=== PATIENT | female | born 1935 | race Caucasian/White ===

== ENCOUNTER 2021-01-10 11:20 | Inpatient (IN) ==
[2021-01-10] MEDS ORDERED: Nitroglycerin 0.4 MG TAB.SUBL SL PRN (16:20)
[2021-01-10] MEDS: *HR* Rivaroxaban 10 MG TABLET PO SCH (18:36)
[2021-01-11 08:01] LABS: Basophils # 0.1 K/mcL (0.0-0.2); Basophils % 0.7 %; Eosinophils # 0.2 K/mcL (0.0-0.6); Eosinophils % 3.2 %; Hematocrit 34.9 % (35.3-44.9); Hemoglobin 11.2 g/dL (11.5-15.4); Immature Granulocytes % 0.4 % (0-4); Lymphocytes # 1.1 K/mcL (0.6-4.6); Lymphocytes % 15.4 %; Mean Corpuscular HGB Conc 32.1 g/dL (31.6-35.5); Mean Corpuscular Hemoglobin 29.6 pg (28.0-33.3); Mean Corpuscular Volume 92.3 fL (83.0-100.0); Mean Platelet Volume 11.5 fL (9.4-12.4); Monocytes # 0.7 K/mcL (0.0-1.3); Monocytes % 9.8 %; Neutrophils # 5.1 K/mcL (1.6-8.9); Platelet Count 232 K/mcL (140-400); Red Blood Count 3.78 M/mcL (3.82-4.97); Red Cell Distribution Width 13.4 % (11.5-14.5); Segmented Neutrophils % 70.5 %; White Blood Count 7.3 K/mcL (4.3-11.1)
[2021-01-11 08:27] LABS: BUN/Creatinine Ratio 27 (6-26); Blood Urea Nitrogen 24 mg/dL (8-23); Calcium 8.3 mg/dL (8.6-10.3); Carbon Dioxide 28 mEq/L (23-29); Chloride 104 mEq/L (98-107); Glucose 96 mg/dL (70-105); Osmolality,Calculated 290 (280-300); Potassium 4.3 mEq/L (3.5-5.1); Sodium 138 mEq/L (136-145); eGFR For African Americans > 60 (> 60); eGFR For Non-African Americans 60 (> 60)
[2021-01-11] MEDS: Cholecalciferol (D-3) 1,000 UNIT (25MCG) TABLET PO SCH (10:03)
[2021-01-11] MEDS: *HR* Amiodarone 200 MG TABLET PO SCH (10:03)
[2021-01-11] MEDS: NIFEdipine XL (24 HR) 30 MG TAB.ER.24 PO SCH (10:03)
[2021-01-11] MEDS: Zinc Sulfate 220 MG CAPSULE PO SCH (10:03)
[2021-01-11] MEDS: Ascorbic Acid 500 MG TABLET PO SCH (10:04)
[2021-01-11] MEDS: Metoprolol XL (24 HR) Succ 25 MG TAB.ER.24H PO SCH (10:04)
[2021-01-11] MEDS: lisinopriL 20 MG TABLET PO SCH (10:04)
[2021-01-11] MEDS: Ondansetron ODT 4 MG TAB.RAPDIS SL PRN (10:45)
[2021-01-11] MEDS: polyethylene glycoL 3350 17 GM POWD.PACK PO SCH (14:16)
[2021-01-11] MEDS: *HR* Rivaroxaban 10 MG TABLET PO SCH (18:28)
[2021-01-12] MEDS: *HR* HYDROcodone/Acet 5/325 mg TABLET PO PRN (01:04)
[2021-01-12] MEDS: Metoprolol XL (24 HR) Succ 25 MG TAB.ER.24H PO SCH (09:03)
[2021-01-12] MEDS: Cholecalciferol (D-3) 1,000 UNIT (25MCG) TABLET PO SCH (09:03)
[2021-01-12] MEDS: lisinopriL 20 MG TABLET PO SCH (09:04)
[2021-01-12] MEDS: polyethylene glycoL 3350 17 GM POWD.PACK PO SCH (09:04)
[2021-01-12] MEDS: NIFEdipine XL (24 HR) 30 MG TAB.ER.24 PO SCH (09:04)
[2021-01-12] MEDS: *HR* Amiodarone 200 MG TABLET PO SCH (09:04)
[2021-01-12] MEDS: Ascorbic Acid 500 MG TABLET PO SCH (09:04)
[2021-01-12] MEDS: Zinc Sulfate 220 MG CAPSULE PO SCH (09:04)
[2021-01-12] MEDS: hydroCHLOROthiazide 25 MG TABLET PO SCH (09:04)
[2021-01-12] MEDS: Ondansetron ODT 4 MG TAB.RAPDIS SL PRN (10:10)
[2021-01-12 17:40] LABS: Estimated Average Glucose 117 mg/dl; Hemoglobin A1C 5.7 %
[2021-01-12] MEDS: *HR* Rivaroxaban 10 MG TABLET PO SCH (17:40)
[2021-01-13] MEDS: *HR* HYDROcodone/Acet 5/325 mg TABLET PO PRN (02:36)
[2021-01-13] MEDS: NIFEdipine XL (24 HR) 30 MG TAB.ER.24 PO SCH (08:53)
[2021-01-13] MEDS: polyethylene glycoL 3350 17 GM POWD.PACK PO SCH (08:53)
[2021-01-13] MEDS: lisinopriL 20 MG TABLET PO SCH (08:53)
[2021-01-13] MEDS: *HR* Amiodarone 200 MG TABLET PO SCH (08:54)
[2021-01-13] MEDS: Ascorbic Acid 500 MG TABLET PO SCH (08:54)
[2021-01-13] MEDS: Cholecalciferol (D-3) 1,000 UNIT (25MCG) TABLET PO SCH (08:54)
[2021-01-13] MEDS: Zinc Sulfate 220 MG CAPSULE PO SCH (08:54)
[2021-01-13] MEDS: hydroCHLOROthiazide 25 MG TABLET PO SCH (08:54)
[2021-01-13] MEDS ORDERED: Glycerin RECTAL Suppository RC ONE (10:49)
[2021-01-13] MEDS: *HR* Rivaroxaban 10 MG TABLET PO SCH (18:18)
[2021-01-14] MEDS: Sennosides 8.6 MG TABLET PO PRN (06:02)
[2021-01-14] MEDS: lisinopriL 20 MG TABLET PO SCH (09:19)
[2021-01-14] MEDS: hydroCHLOROthiazide 25 MG TABLET PO SCH (09:19)
[2021-01-14] MEDS: NIFEdipine XL (24 HR) 30 MG TAB.ER.24 PO SCH (09:19)
[2021-01-14] MEDS: polyethylene glycoL 3350 17 GM POWD.PACK PO SCH (09:20)
[2021-01-14] MEDS: Metoprolol XL (24 HR) Succ 25 MG TAB.ER.24H PO SCH (09:20)
[2021-01-14] MEDS: *HR* Amiodarone 200 MG TABLET PO SCH (09:20)
[2021-01-14] MEDS: Zinc Sulfate 220 MG CAPSULE PO SCH (09:20)
[2021-01-14] MEDS: Cholecalciferol (D-3) 1,000 UNIT (25MCG) TABLET PO SCH (09:20)
[2021-01-14] MEDS: Ascorbic Acid 500 MG TABLET PO SCH (09:20)
[2021-01-14] MEDS: Ondansetron ODT 4 MG TAB.RAPDIS SL PRN (11:51)
[2021-01-14] MEDS: *HR* Rivaroxaban 10 MG TABLET PO SCH (18:46)
[2021-01-15] MEDS: *HR* HYDROcodone/Acet 5/325 mg TABLET PO PRN (04:19)
[2021-01-15 07:16] LABS: Basophils % 0.5 %; Eosinophils # 0.2 K/mcL (0.0-0.6); Eosinophils % 2.6 %; Hematocrit 36.6 % (35.3-44.9); Hemoglobin 11.8 g/dL (11.5-15.4); Immature Granulocytes % 0.4 % (0-4); Lymphocytes # 1.5 K/mcL (0.6-4.6); Lymphocytes % 19.8 %; Mean Corpuscular HGB Conc 32.2 g/dL (31.6-35.5); Mean Corpuscular Hemoglobin 29.6 pg (28.0-33.3); Mean Corpuscular Volume 91.7 fL (83.0-100.0); Mean Platelet Volume 11.1 fL (9.4-12.4); Monocytes # 0.8 K/mcL (0.0-1.3); Monocytes % 10.2 %; Neutrophils # 4.9 K/mcL (1.6-8.9); Platelet Count 279 K/mcL (140-400); Red Blood Count 3.99 M/mcL (3.82-4.97); Red Cell Distribution Width 13.4 % (11.5-14.5); Segmented Neutrophils % 66.5 %; White Blood Count 7.4 K/mcL (4.3-11.1)
[2021-01-15 07:59] LABS: BUN/Creatinine Ratio 29 (6-26); Blood Urea Nitrogen 31 mg/dL (8-23); Calcium 8.5 mg/dL (8.6-10.3); Carbon Dioxide 30 mEq/L (23-29); Chloride 101 mEq/L (98-107); Glucose 90 mg/dL (70-105); Osmolality,Calculated 288 (280-300); Potassium 4.2 mEq/L (3.5-5.1); Sodium 136 mEq/L (136-145); eGFR For African Americans > 60 (> 60); eGFR For Non-African Americans 50 (> 60)
[2021-01-15] MEDS: Metoprolol XL (24 HR) Succ 25 MG TAB.ER.24H PO SCH (08:03)
[2021-01-15] MEDS: polyethylene glycoL 3350 17 GM POWD.PACK PO SCH (08:03)
[2021-01-15] MEDS: Zinc Sulfate 220 MG CAPSULE PO SCH (08:04)
[2021-01-15] MEDS: lisinopriL 20 MG TABLET PO SCH (08:04)
[2021-01-15] MEDS: NIFEdipine XL (24 HR) 30 MG TAB.ER.24 PO SCH (08:04)
[2021-01-15] MEDS: *HR* Amiodarone 200 MG TABLET PO SCH (08:04)
[2021-01-15] MEDS: Ascorbic Acid 500 MG TABLET PO SCH (08:05)
[2021-01-15] MEDS: Cholecalciferol (D-3) 1,000 UNIT (25MCG) TABLET PO SCH (08:05)
[2021-01-15] MEDS: Sennosides 8.6 MG TABLET PO PRN (08:05)
[2021-01-15] MEDS: hydroCHLOROthiazide 25 MG TABLET PO SCH (08:05)
[2021-01-15] MEDS: Fluticasone Propionate Nasal 50 MCG/SPRAY BOTTLE NS SCH (08:14)
[2021-01-15] MEDS: *HR* Rivaroxaban 10 MG TABLET PO SCH (18:28)
[2021-01-16] MEDS: lisinopriL 20 MG TABLET PO SCH (09:20)
[2021-01-16] MEDS: polyethylene glycoL 3350 17 GM POWD.PACK PO SCH (09:20)
[2021-01-16] MEDS: hydroCHLOROthiazide 25 MG TABLET PO SCH (09:21)
[2021-01-16] MEDS: *HR* HYDROcodone/Acet 5/325 mg TABLET PO PRN (09:21)
[2021-01-16] MEDS: Zinc Sulfate 220 MG CAPSULE PO SCH (09:23)
[2021-01-16] MEDS: *HR* Amiodarone 200 MG TABLET PO SCH (09:23)
[2021-01-16] MEDS: Cholecalciferol (D-3) 1,000 UNIT (25MCG) TABLET PO SCH (09:23)
[2021-01-16] MEDS: Metoprolol XL (24 HR) Succ 25 MG TAB.ER.24H PO SCH (09:24)
[2021-01-16] MEDS: NIFEdipine XL (24 HR) 30 MG TAB.ER.24 PO SCH (09:24)
[2021-01-16] MEDS: Ascorbic Acid 500 MG TABLET PO SCH (09:24)
[2021-01-16] MEDS: Fluticasone Propionate Nasal 50 MCG/SPRAY BOTTLE NS SCH (09:25)
[2021-01-16] MEDS: *HR* Rivaroxaban 10 MG TABLET PO SCH (18:09)
[2021-01-16] MEDS: Acetaminophen 325 MG TABLET PO PRN (18:09)
[2021-01-16] MEDS: methocarbamoL 500 MG TABLET PO PRN (20:36)
[2021-01-17] MEDS: Fluticasone Propionate Nasal 50 MCG/SPRAY BOTTLE NS SCH (08:15)
[2021-01-17] MEDS: polyethylene glycoL 3350 17 GM POWD.PACK PO SCH (08:16)
[2021-01-17] MEDS: *HR* Amiodarone 200 MG TABLET PO SCH (08:16)
[2021-01-17] MEDS: Zinc Sulfate 220 MG CAPSULE PO SCH (08:16)
[2021-01-17] MEDS: Metoprolol XL (24 HR) Succ 25 MG TAB.ER.24H PO SCH (08:16)
[2021-01-17] MEDS: lisinopriL 20 MG TABLET PO SCH (08:16)
[2021-01-17] MEDS: NIFEdipine XL (24 HR) 30 MG TAB.ER.24 PO SCH (08:16)
[2021-01-17] MEDS: Cholecalciferol (D-3) 1,000 UNIT (25MCG) TABLET PO SCH (08:17)
[2021-01-17] MEDS: hydroCHLOROthiazide 25 MG TABLET PO SCH (08:17)
[2021-01-17] MEDS: Ascorbic Acid 500 MG TABLET PO SCH (08:17)
[2021-01-17] MEDS: Ondansetron ODT 4 MG TAB.RAPDIS SL PRN (08:55)
[2021-01-17] MEDS: *HR* HYDROcodone/Acet 5/325 mg TABLET PO PRN (11:49)
[2021-01-17] MEDS ORDERED: Sennosides/Docusate Sodium TABLET PO SCH (21:00)
[2021-01-17] MEDS: Melatonin 3 MG TABLET PO PRN (21:50)
[2021-01-17] MEDS: *HR* Rivaroxaban 10 MG TABLET PO SCH (21:50)
[2021-01-17] MEDS: Sennosides/Docusate Sodium TABLET PO SCH (22:32)
[2021-01-18] MEDS: methocarbamoL 500 MG TABLET PO PRN ×2 (00:21→21:38)
[2021-01-18] MEDS: Acetaminophen 325 MG TABLET PO PRN (01:22)
[2021-01-18] MEDS: lisinopriL 20 MG TABLET PO SCH (11:14)
[2021-01-18] MEDS: NIFEdipine XL (24 HR) 30 MG TAB.ER.24 PO SCH (11:14)
[2021-01-18] MEDS: hydroCHLOROthiazide 25 MG TABLET PO SCH (11:14)
[2021-01-18] MEDS: Metoprolol XL (24 HR) Succ 25 MG TAB.ER.24H PO SCH (11:15)
[2021-01-18] MEDS: Zinc Sulfate 220 MG CAPSULE PO SCH (11:15)
[2021-01-18] MEDS: Ascorbic Acid 500 MG TABLET PO SCH (11:15)
[2021-01-18] MEDS: *HR* Amiodarone 200 MG TABLET PO SCH (11:16)
[2021-01-18] MEDS: Cholecalciferol (D-3) 1,000 UNIT (25MCG) TABLET PO SCH (11:16)
[2021-01-18] MEDS: Sennosides/Docusate Sodium TABLET PO SCH (11:19)
[2021-01-18] MEDS: Fluticasone Propionate Nasal 50 MCG/SPRAY BOTTLE NS SCH (11:19)
[2021-01-18] MEDS ORDERED: polyethylene glycoL 3350 17 GM POWD.PACK PO SCH (12:00)
[2021-01-18] MEDS: *HR* Rivaroxaban 10 MG TABLET PO SCH (18:35)
[2021-01-18] MEDS: *HR* HYDROcodone/Acet 5/325 mg TABLET PO PRN (21:38)
[2021-01-19] MEDS: Sennosides/Docusate Sodium TABLET PO SCH ×3 (03:55→20:21)
[2021-01-19] MEDS: Fluticasone Propionate Nasal 50 MCG/SPRAY BOTTLE NS SCH (08:10)
[2021-01-19] MEDS: lisinopriL 20 MG TABLET PO SCH (11:20)
[2021-01-19] MEDS: Ascorbic Acid 500 MG TABLET PO SCH (11:21)
[2021-01-19] MEDS: Zinc Sulfate 220 MG CAPSULE PO SCH (11:21)
[2021-01-19] MEDS: NIFEdipine XL (24 HR) 30 MG TAB.ER.24 PO SCH (11:21)
[2021-01-19] MEDS: Cholecalciferol (D-3) 1,000 UNIT (25MCG) TABLET PO SCH (11:21)
[2021-01-19] MEDS: Metoprolol XL (24 HR) Succ 25 MG TAB.ER.24H PO SCH (11:21)
[2021-01-19] MEDS: hydroCHLOROthiazide 25 MG TABLET PO SCH (11:22)
[2021-01-19] MEDS: *HR* Amiodarone 200 MG TABLET PO SCH (11:23)
[2021-01-19] MEDS: Acetaminophen 325 MG TABLET PO PRN (18:11)
[2021-01-19] MEDS: *HR* Rivaroxaban 10 MG TABLET PO SCH (18:11)
[2021-01-20] MEDS: Fluticasone Propionate Nasal 50 MCG/SPRAY BOTTLE NS SCH ×2 (09:25→12:39)
[2021-01-20] MEDS: Sennosides/Docusate Sodium TABLET PO SCH ×3 (09:25→20:19)
[2021-01-20] MEDS: Zinc Sulfate 220 MG CAPSULE PO SCH (12:36)
[2021-01-20] MEDS: *HR* Amiodarone 200 MG TABLET PO SCH (12:36)
[2021-01-20] MEDS: NIFEdipine XL (24 HR) 30 MG TAB.ER.24 PO SCH (12:36)
[2021-01-20] MEDS: hydroCHLOROthiazide 25 MG TABLET PO SCH (12:37)
[2021-01-20] MEDS: Metoprolol XL (24 HR) Succ 25 MG TAB.ER.24H PO SCH (12:37)
[2021-01-20] MEDS: lisinopriL 20 MG TABLET PO SCH (12:37)
[2021-01-20] MEDS: Cholecalciferol (D-3) 1,000 UNIT (25MCG) TABLET PO SCH (12:37)
[2021-01-20] MEDS: Ascorbic Acid 500 MG TABLET PO SCH (12:37)
[2021-01-20] MEDS: *HR* Rivaroxaban 10 MG TABLET PO SCH (18:51)
[2021-01-20] MEDS: methocarbamoL 500 MG TABLET PO PRN (22:09)
[2021-01-20] MEDS: *HR* HYDROcodone/Acet 5/325 mg TABLET PO PRN (22:10)
[2021-01-21] MEDS: Cholecalciferol (D-3) 1,000 UNIT (25MCG) TABLET PO SCH (12:55)
[2021-01-21] MEDS: Ascorbic Acid 500 MG TABLET PO SCH (12:55)
[2021-01-21] MEDS: lisinopriL 20 MG TABLET PO SCH (12:57)
[2021-01-21] MEDS: Zinc Sulfate 220 MG CAPSULE PO SCH (12:57)
[2021-01-21] MEDS: *HR* Amiodarone 200 MG TABLET PO SCH (12:58)
[2021-01-21] MEDS: hydroCHLOROthiazide 25 MG TABLET PO SCH (12:58)
[2021-01-21] MEDS: NIFEdipine XL (24 HR) 30 MG TAB.ER.24 PO SCH (12:59)
[2021-01-21] MEDS: Metoprolol XL (24 HR) Succ 25 MG TAB.ER.24H PO SCH (12:59)
[2021-01-21] MEDS: Fluticasone Propionate Nasal 50 MCG/SPRAY BOTTLE NS SCH (13:02)
[2021-01-21] MEDS: Sennosides/Docusate Sodium TABLET PO SCH ×2 (13:02→20:56)
[2021-01-21] MEDS: *HR* Rivaroxaban 10 MG TABLET PO SCH (18:43)
[2021-01-22] MEDS: Metoprolol XL (24 HR) Succ 25 MG TAB.ER.24H PO SCH (11:43)
[2021-01-22] MEDS: Cholecalciferol (D-3) 1,000 UNIT (25MCG) TABLET PO SCH (11:45)
[2021-01-22] MEDS: Zinc Sulfate 220 MG CAPSULE PO SCH (11:45)
[2021-01-22] MEDS: Ascorbic Acid 500 MG TABLET PO SCH (11:45)
[2021-01-22] MEDS: NIFEdipine XL (24 HR) 30 MG TAB.ER.24 PO SCH (11:46)
[2021-01-22] MEDS: *HR* Amiodarone 200 MG TABLET PO SCH (11:46)
[2021-01-22] MEDS: hydroCHLOROthiazide 25 MG TABLET PO SCH (11:47)
[2021-01-22] MEDS: lisinopriL 20 MG TABLET PO SCH (11:47)
[2021-01-22] MEDS: Sennosides/Docusate Sodium TABLET PO SCH ×2 (11:48→21:39)
[2021-01-22] MEDS: Fluticasone Propionate Nasal 50 MCG/SPRAY BOTTLE NS SCH (11:48)
[2021-01-22] MEDS: *HR* Rivaroxaban 10 MG TABLET PO SCH (17:35)
[2021-01-22] MEDS: Melatonin 3 MG TABLET PO PRN (21:42)
[2021-01-22] MEDS: methocarbamoL 500 MG TABLET PO PRN (21:42)
[2021-01-23] MEDS: Acetaminophen 325 MG TABLET PO PRN ×2 (00:53→12:58)
[2021-01-23] MEDS: Cholecalciferol (D-3) 1,000 UNIT (25MCG) TABLET PO SCH (12:58)
[2021-01-23] MEDS: Zinc Sulfate 220 MG CAPSULE PO SCH (12:58)
[2021-01-23] MEDS: Ascorbic Acid 500 MG TABLET PO SCH (12:58)
[2021-01-23] MEDS: lisinopriL 20 MG TABLET PO SCH (12:59)
[2021-01-23] MEDS: *HR* Amiodarone 200 MG TABLET PO SCH (12:59)
[2021-01-23] MEDS: hydroCHLOROthiazide 25 MG TABLET PO SCH (12:59)
[2021-01-23] MEDS: NIFEdipine XL (24 HR) 30 MG TAB.ER.24 PO SCH (12:59)
[2021-01-23] MEDS: Metoprolol XL (24 HR) Succ 25 MG TAB.ER.24H PO SCH (12:59)
[2021-01-23] MEDS: Sennosides/Docusate Sodium TABLET PO SCH ×2 (13:00→19:43)
[2021-01-23] MEDS: Fluticasone Propionate Nasal 50 MCG/SPRAY BOTTLE NS SCH (13:00)
[2021-01-23] MEDS: *HR* Rivaroxaban 10 MG TABLET PO SCH (19:42)
[2021-01-24] MEDS: Ascorbic Acid 500 MG TABLET PO SCH (12:32)
[2021-01-24] MEDS: Cholecalciferol (D-3) 1,000 UNIT (25MCG) TABLET PO SCH (12:32)
[2021-01-24] MEDS: lisinopriL 20 MG TABLET PO SCH (12:32)
[2021-01-24] MEDS: Zinc Sulfate 220 MG CAPSULE PO SCH (12:32)
[2021-01-24] MEDS: NIFEdipine XL (24 HR) 30 MG TAB.ER.24 PO SCH (12:33)
[2021-01-24] MEDS: *HR* Amiodarone 200 MG TABLET PO SCH (12:33)
[2021-01-24] MEDS: Metoprolol XL (24 HR) Succ 25 MG TAB.ER.24H PO SCH (12:33)
[2021-01-24] MEDS: hydroCHLOROthiazide 25 MG TABLET PO SCH (12:33)
[2021-01-24] MEDS: Sennosides/Docusate Sodium TABLET PO SCH (12:34)
[2021-01-24] MEDS: Fluticasone Propionate Nasal 50 MCG/SPRAY BOTTLE NS SCH (12:34)
[2021-01-25 07:39] VITALS: BP 149/64; PULSE 65; RESP 18; TEMP 98.2; O2SAT 93
== END 2021-01-24 15:33 | disposition home health service (06) | DRG 561 ==
LOC: INPPIK 16:17
PROVIDERS: ADMIT Family Medicine; ATTEND Family Medicine